=== PATIENT | female | born 1980 | race Caucasian/White ===

== ENCOUNTER 2017-02-11 19:35 | Observation (INO) | payer OTHER ==
[2017-02-11 20:35] LABS: #Basophils 0.1 thou/uL (0.0-0.2); #Eosinphils 0.1 thou/uL (0.0-0.7); #Lymphocytes 2.6 thou/uL (1.20-3.40); #Monocytes 0.5 thou/uL (0.11-0.59); #Neutrophils 3.5 thou/uL (1.40-6.50); %Basophils 1.5 % (0.0-1.0); %Lymphocytes 37.9 % (21.0-51.0); %Monocytes 7.3 % (0.0-10.0); Hematocrit 38.4 % (36.0-47.0); Mean Platelet Volume 7.3 fL (7.4-10.4); Red Blood Cell (RBC) Count 4.15 mill/uL (4.20-5.40); White Blood Cell (WBC) Count 6.8 thou/uL (4.8-10.8)
[2017-02-11 20:48] LABS: Anion Gap 14 mmol/L (10-20); BUN (Urea Nitrogen) 12 mg/dL (7.0-18.7); Calc. Creatinine Clearance 0 mL/min (70-130); Calcium 9.6 mg/dL (7.8-10.44); Carbon Dioxide 22 mmol/L (22-29); Chloride 105 mmol/L (98-107); Estimated GFR-MDRD 85
[2017-02-11 21:41] LABS: Bilirubin Negative (Negative); Blood, Urine Negative (Negative); Glucose, Urine (Dipstick) Negative (Negative); Ketone, Urine Negative (Negative); Nitrite Negative (Negative); Protein, Urine (Dipstick) Negative (Neg-Trace); Urobilinogen 0.2 mg/dL (0.2-1.0)
--- NOTE | 2017-02-11 21:41 | ULT ---
EXAM: PELVIC ULTRASOUND 02/11/17 COMPARISON: 02/15/12 HISTORY: Vaginal bleeding. Abdominal pain and spotting. Two prior ectopic pregnancies. Serum beta HCG is 7854 . TECHNIQUE: Endovaginal imaging of the pelvis is performed. The ovaries are interrogated with dietz scale, color flow, doppler imaging with spectral waveform analysis. FINDINGS: The uterus is identified and measures 7.7 x 3.7 x 4.5 cm. In the mid lower aspect of the uterus ther e is a solid echotexture area measuring 0.7 cm which may represent a small leiomyoma. The visualized endometrium has a homogeneous echotexture and measures 1 cm. There is no sonographic evidence of a gestational sac, yolk sac or pole. The right ovary has a normal echotexture measuring 2.5 x 1.7 x 1.6 cm. Left ovary has a normal echotexture with a probable corpus luteal cyst measuring 1.6 x 1.1 x 1.5 cm. Overall, the left ovary measures 2.4 x 2.0 x 2.5 cm. There is no significant free fluid in the cul-de-sac. OVARIAN DOPPLER: Vascular flow to both ovaries. IMPRESSION: No sonographic evidence of an intrauterine gestation. Differential considerations include early intr auterine versus a sonographic occult ectopic versus mid spontaneous . Fo llowup ultrasound and serial beta HCGs are recommended. POS: [facility]
[2017-02-11] MEDS ORDERED: Promethazine HCl 25 MG/ML VIAL IM PRN (22:27)
[2017-02-11] MEDS ORDERED: Ondansetron HCl/PF 4 MG/2 ML Vial IVP PRN (22:27)
[2017-02-11] MEDS ORDERED: traMADol HCl 50 MG TAB PO PRN (22:30)
[2017-02-11] MEDS ORDERED: Lactated Ringer's 1,000 ML IV SCH ×2 (22:30→23:00)
[2017-02-11 23:03] LABS: Hematocrit 36.3 % (36.0-47.0); Red Blood Cell (RBC) Count 3.95 mill/uL (4.20-5.40)
[2017-02-12 01:31] VITALS: BMI 43.2
[2017-02-12] MEDS ORDERED: Fentanyl 250 MCG/5 ML VIAL ONE (07:13)
--- NOTE | 2017-02-12 07:21 | HP ---
DATE OF ENCOUNTER: 02/11/2017 REFERRING PHYSICIAN: Jose Israel M.D. in the Emergency Room. CHIEF COMPLAINT: Abdominal pain with a positive test. HISTORY OF PRESENT ILLNESS: The patient is a 36-year-old G6, P2 female with an intrauterine pregnan cy approximately 4-5 weeks by LMP, who is presenting to Labor and Delivery with a 4-day history of i ntermittent abdominal pain and vaginal spotting. The patient reports a history of 2 previous ectopi c pregnancies with one salpingectomy and one treated with methotrexate. The patient also has a hist ory of 2 prior C-sections and 6 pregnancies in total with 2 induced abortions. The patient denies a ny nausea, vomiting, chest pain, or shortness of breath. She denies any significant pain at this ti me, but is concerned that her chronic tramadol use may be blunting what she is feeling. The patient has chronic neck pain. PAST MEDICAL HISTORY: Significant for surgical induced hypothyroidism, chronic pain in her neck and back. PAST SURGICAL HISTORY: She has had a left fallopian tube removed. She has had a thyroidectomy. Sh e had a recent neck surgery for torn disk and has had left arm surgery. SOCIAL HISTORY: The patient reports that she smokes about 1 pack per day. She denies any alcohol u se. The patient also reports that she uses marijuana about one time in a week. REVIEW OF SYSTEMS: Per HPI. PHYSICAL EXAMINATION: VITAL SIGNS: Blood pressure 129/73, pulse of 80, respiratory rate of 18, temperature 97.4, satting 100% on room air with the pain scales. The patient is denying pain at the time of evaluation. GENERAL: She appears to be in no acute distress. She is alert and oriented, cooperative and pleasa nt to interact with. HEENT: Head is normocephalic and atraumatic. LUNGS: Clear to auscultation bilaterally. HEART: Regular rate and rhythm. ABDOMEN: Soft and nontender at this time. EXTREMITIES: Nontender, nonedematous. GENITOURINARY: Has been deferred. Her beta-hCG is over 7000. Ultrasound does not show any dilated adnexa or any intrauterine pregnanc y and no free fluid in the cul-de-sac. ASSESSMENT: The patient is a 36-year-old female with a approximately 4-5 weeks gestation that is not visible in the uterine cavity and is having intermittent right lower quadrant pain. At this point with a quant level of 7000, we should be seeing an intrauterine with pole and cardiac activity. The patient has a history of previous ectopics x2 and is highly suspected of having one with this . We discussed the various options including medical versus surgical management and the patient feels strongly about having a surgical evaluation and removal of the rig ht tube given her history and her risk factors for repeat ectopic. The patient last ate a couple of hours before presentation and given the patient's stable status and minimal pain at this time, we va celis opted to admit the patient to the floor for the night and plan to have surgery at 7:00 in the mo rning. I have made the patient n.p.o. and I have explained to her that if at any point she is havin g increasing pain, to notify her nurse. The patient has been counseled to the risks and benefits of diagnostic laparoscopy including the ris k of bleeding, infection, damage to bowel or bladder or blood vessels. We have also explained that this procedure will make her sterile as she will no longer have tubes on either side of the uterus. The patient has expressed understanding and desires to proceed. We have also counseled the patient to a D\T\C in the event if that becomes necessary and including the risks of bleeding, infection, d amage to bowel, bladder and blood vessels. Plan at this time is to begin laparoscopically for remov al of that right tube and if that tube was completely normal, given the high risk of ectopic, we leah l plan on an intraoperative D\T\C for fresh pathology to review and confirm. If there is nothing in the uterus, then we will plan on removing that tube and then we will look elsewhere in the cavity f or possible locations and if need be, we will follow her quant levels to 0.
[2017-02-12] MEDS ORDERED: Bupivacaine/Epinephrine 0.25% 30 ML VIAL ONE (07:52)
[2017-02-12] MEDS ORDERED: Lidocaine 2% w/Epinephrine 1:200K 20 ML VIAL ONE (07:54)
[2017-02-12] MEDS ORDERED: Bupivacaine PF 0.5% 30 ML VIAL ONE (07:55)
[2017-02-12] MEDS ORDERED: Midazolam HCl 2 mg/2 ml Vial ONE (08:32)
[2017-02-12] MEDS ORDERED: Glycopyrrolate 0.2 MG/ML 5 ML SYRINGE ONE (08:43)
[2017-02-12] MEDS ORDERED: Propofol 200 MG/20 ML VIAL ONE (08:43)
[2017-02-12] MEDS ORDERED: Lidocaine 1% PF 5 ML VIAL ONE (08:43)
[2017-02-12] MEDS ORDERED: Ondansetron HCl/PF 4 MG/2 ML Vial ONE (08:43)
[2017-02-12] MEDS ORDERED: Dexamethasone 20 MG/5 ML VIAL ONE (08:43)
--- NOTE | 2017-02-12 08:54 | PRG ---
DATE OF SERVICE: 02/12/2017 PREOPERATIVE EVALUATION TIME OF EVALUATION: 08:25, it is now 08:37 In brief, this is a patient who has been seen at the bedside in the same day hold, [facility], room #2. This patient was admitted by Dr. Nevarez for suspected ectopic with a past history of ectopic previously treated with methotrexate as well as salpingectomy, she believes it was the left side. She arrives now clinically stable, but with some lower pelvic cramping with a noted hCG value that is above the level of detection. A pelvic ultrasound showed no evidence of an intrauterine . I have evaluated the ultrasound myself. I reviewed the case with Dr. Nevarez and have seen and evaluated the patient at bedside. Impression/Plan: Possible Ectopic. We are now on the way to the OR for possible diagnostic laparoscopy/salpingectomy, with possible D\T\C if needed. Patient aware that id an ectopic is found and we remove the only remaining tube, then sterility will result. This patient has a full preop written note by me in the physical chart. For full details, please turn to the written note. TO
[2017-02-12] MEDS ORDERED: Ondansetron HCl/PF 4 MG/2 ML Vial IVP PRN (10:42)
[2017-02-12] MEDS ORDERED: Promethazine HCl 25 MG/ML VIAL SLOW IVP PRN (10:42)
[2017-02-12] MEDS ORDERED: Promethazine HCl 25 MG/ML VIAL IM PRN (10:42)
[2017-02-12] MEDS ORDERED: Fentanyl 100 MCG/2 ML VIAL ONE ×2 (10:44→11:12)
[2017-02-12] MEDS ORDERED: Acetaminophen 1,000 MG in Premix Bag 1 BAG IVPB SCH (10:45)
[2017-02-12] MEDS ORDERED: Promethazine HCl 25 MG/ML VIAL IM/IV PRN (10:47)
--- NOTE | 2017-02-12 10:50 | PDOC.EVN ---
Event Note - Event Note Event Note: Patient stable, now in recovery. RH type positive. To RR, then room 306.
--- NOTE | 2017-02-12 11:12 | CON ---
INTRAOPERATIVE CONSULTATION NOTE DATE OF CONSULTATION: 02/12/2017 CHIEF COMPLAINT: Intestinal adhesion. HISTORY OF PRESENT ILLNESS: The patient is a 36-year-old female who is undergoing a salpingectomy f or an ectopic . During this procedure, the gear shaper set up operator noted large adhesions in the pelvi s that he was concerned about. The patient had no history of bowel issues or distention. No histor y of bowel obstruction. On examination, the patient was already asleep on the table, there were thr ee 5 mm ports in placed to; one on the right, one on the left and one at the umbilicus. The tube adamson d already been removed. There was a minimal amount of serosanguineous fluid. The sigmoid colon was fused to the lower anterior abdominal wall just suprapubic. There was no evidence in inspections t hat this loop of bowel had been injured by trocar placement nor that there had been any issue with c hronic obstruction. The adhesion was very wide based and attached to the bladder as well, but there was no inflammation. There was no potential space for herniation of small bowel. I elected to roya ve it alone due to the fact that it was fairly wide based that there was a risk of injury to the bow el, that there was no other issue noted and the likelihood it would reform within a few days after s urgery, so the gear shaper set up operator then proceeded with the surgery.
--- NOTE | 2017-02-12 12:43 | PDOC.EVN ---
Event Note - Event Note Event Note: 02/18/17 at 1235: AMA notice: RELEASE NOTE: S/P cornual ectopic right salpingectomy Patient seen at bedside by me 15 minutes prior. Patient wishes to sign out AMA. She is a extermination inspector narcotic med user and states she "wants to go home to her meds". We have just given her stadol and I had just ordered toradol for her. I advised her to stay inhouse until 4pm (1600) due to the cornual ectopic site and as I wished to ensure hemostasis. She has elected to leave AMA. We will give a RX for outpatient motrim and Ultram (#15). She will follow up at [facility] with Dr Soliman in one week. Case reviewed with her nurse as well.
[2017-02-12 12:53] VITALS: BP 153/87; TEMP 97.8
[2017-02-12] MEDS ORDERED: Ketorolac Tromethamine 30 MG/ML VIAL IVP SCH (13:15)
--- NOTE | 2017-02-12 17:09 | OP ---
DATE OF SERVICE: 02/12/2017 TIME OF SERVICE: 10:30 a.m. PREOPERATIVE DIAGNOSES: Suspected ectopic in a patient with prior abdominal surgeries and a prior left tubal removal. POSTOPERATIVE DIAGNOSES: 1. Right cornual ectopic. 2. 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 PROCEDURES: 1. Operative laparoscopy. 2. Right complete salpingectomy using a LigaSure device. 3. FloSeal hemostatic agent applied on the incision. 4. Intraoperative bowel evaluation by Dr. Joe Roche. SURGEON: Shilo Claire M.D. MOISTURE METER READER: Ruben Dhaliwal MD INTRAOPERATIVE CRANE RIGGER: Joe Roche M.D. (after the ectopic was removed, Dr. Roche evaluated the patient for possible loop of bowel dissection for an adhesion that took a loop of small bowel to the anterior abdominal wall away from our site of surgery.) ESTIMATED BLOOD LOSS: Less than or equal to 30 mL FLUIDS: About 1200 mL crystalloid. DRAINS: Carey catheter which had approximately 100-200 mL urine. COMPLICATIONS: None. PATHOLOGY: The right tubal segment with the suspected ectopic within. COUNTS: Correct. DISPOSITION: To recovery room and then to room 306 for a few hours of observation prior to discharge this evening. TECHNIQUE: After proper informed consent was explained, she was taken to the OR where she was successfully placed under general endotracheal anesthesia. She was positioned in Alberto stirrups and all pressure points were adequately padded. Deep hyperflexion and external rotation were avoided in the positioning process. After successful induction of anesthesia, the patient's abdomen and vagina were prepped and draped in the usual sterile fashion. Attention was first turned towards the patient's vagina where a Graves bivalve speculum was placed to visualize the cervix. No active bleeding was noted. A single-tooth tenaculum was placed on the anterior lip of the cervix and a Hulka clamp was placed into the uterus for intrauterine manipulation. The surgeon's gloves were removed and attention was turned to the patient's abdomen. A 7 mm skin incision was made in the infraumbilical area with the scalpel. The fascia was identified and a small 5 mm incision was made in the fascia for direct trocar entry. A 5 mm laparoscopic trocar was placed under direct visualization without Veress needle use. This was done due to the patient's 2 prior C- sections. No bowel or other visceral injury was noted. Once we placed the camera in, we did note that the small bowel did have a loop of adhesion to the anterior abdominal wall which was just medial to our trocar site, but the trocar sites did not involve the bowel. We elected to continue the procedure until the ectopic was removed at which time we will call General Surgery to see if they could remove that loop of bowel. We then placed two 5 mm trocars in the right and left lower quadrant in the usual fashion. We identified there was no left tube and the right tube had a suspected cornual ectopic that was approximately 2 x 2 cm in size. We started at the fimbrial end and using the LigaSure instrument, we dissected the tube all the way to the level of the cornu. We then used monopolar scissors to dissect around the implantation of the cornual ectopic at the cornual area. Once it was freed, the LigaSure device was able to find a knuckle of tube to amputate the remainder of the tube off the cornu. For the denuded cornual base, we used monopolar scissors and fulguration to make it hemostatic. At the end of the procedure, we used FloSeal one full syringe to apply to this crater. It is important to note that we did not actually enter the myometrium and this was just serosal dissection as the ectopic abutted the uterine serosa. After we removed the ectopic, Dr. Roche came in for evaluation of the bowel. Based on the complex nature of the adhesion, we felt that removal of that bowel was actually risker than leaving that loop of bowel in place since it was at low risk for strangulation and the patient was asymptomatic. Once again, Dr. Roche did assess the bowel and noted #1 there was no trocar injury and #2 that it did not need to be removed based on its location and thickness. After this was done, then we removed the pathology specimen with an EndoCatch bag. To do this, we converted the right lower quadrant port to a 10 mm incision and a 10 mm EndoCatch was then placed. That right lower quadrant port was then closed with a deep suture of 0 Vicryl. All ports were then free of instrumentation after we confirmed after copious inspection and vigorous inspection of the cornual area and after noting hemostasis, and after irrigation of the cul-de-sac , once we were assured that the area was hemostatic, we closed the ports. All gas was removed and the patient seemed to tolerate procedure well. Once again, prior to removing all instrumentation, we did place one syringe of FloSeal on the cornual area and hemostasis was assured. There was no area of bleeding noted. The patient will go to recovery and then to room 306 on the gynecology floor for a few hours of observation prior to being released. TO
== END 2017-02-12 12:45 | disposition left against medical advice (07) ==
LOC: ERS 19:35 → 3SE 22:00 → 3SW 02-12 11:57
PROVIDERS: ADMIT Obstetrics & Gynecology; ATTEND Obstetrics & Gynecology
PROC: 10T24ZZ Resection of Products of Conception, Ectopic, Percutaneous Endoscopic Approach (ICD-10-PCS; principal; 2017-02-12)
PROC: 0UT54ZZ Resection of Right Fallopian Tube, Percutaneous Endoscopic Approach (ICD-10-PCS; 2017-02-12)
DX: O00.80 Other ectopic pregnancy without intrauterine pregnancy (principal); E03.9 Hypothyroidism, unspecified; F17.210 Nicotine dependence, cigarettes, uncomplicated; Z90.721 Acquired absence of ovaries, unilateral; Z98.890 Other specified postprocedural states
CPT/HCPCS: 36415; 76856; 80048; 81003; 84702; 85025; 86850; 86900; 86901; 88305; 96361; 96374; G0378; J0131; J0595; J1100; J1170; J2001; J2250; J2405; J2704; J3010; S0020

== ENCOUNTER 2017-02-12 22:01 | Emergency (ER) | payer OTHER ==
[2017-02-12] MEDS ORDERED: Fentanyl 100 MCG/2 ML VIAL ONE (22:54)
[2017-02-12] MEDS ORDERED: Ketorolac Tromethamine 60 MG/2 ML VIAL ONE (22:54)
--- NOTE | 2017-02-12 23:03 | PDOC.EVN ---
Event Note - Event Note Event Note: 02/12/17 at 2245: I was contacted by the ER Physician that Ms Morton returned to the ER for pain control. She is afetbrile with stable vitals. This patient left earlier today AMA after laparoscopic salpingectomy for a right cornual ectopic. Per the ER physician, she apperas stable and has stable vitals. OK for outpatient pain management follow up (has chronic narcotic med use and sees pain management clinic). I am in L&D currently and not marv to go to the ER at this time. Per the ED physician, he is comfortable with her going on to outpatient care as she appears in no acute distress. No evidence of postop complication by vitals assessment. Care noted.
--- NOTE | 2017-02-12 23:34 | RAD ---
EXAM: ONE VIEW CHEST 02/12/17 HISTORY: Had right fallopian tube removed this morning. Now having right shoulder and abdominal pain. COMPARISON: None. FINDINGS: Portable upright chest demonstrates a normal cardiac silhouette. The pulmonary vessels are slightly prominent. No masses or consolidation. No pneumothorax or osseous abnormalities. Cervical fusion milana dware is noted and incompletely evaluated. IMPRESSION: Mild pulmonary vascular prominence. POS: [facility]
== END 2017-02-12 23:58 | disposition home or self-care (01) ==
LOC: ERS 22:01
DX: R10.84 Generalized abdominal pain (principal); E03.9 Hypothyroidism, unspecified; F17.210 Nicotine dependence, cigarettes, uncomplicated; Z79.891 Long term (current) use of opiate analgesic; Z79.899 Other long term (current) drug therapy
CPT/HCPCS: 71010; 96372; J1885; J3010

== ENCOUNTER → 2017-03-24 | Outpatient (CLI) | payer OTHER | LOC: BICRAD 16:24 | PROVIDERS: ATTEND Family Medicine | DX: M79.671 Pain in right foot (principal); M79.89 Other specified soft tissue disorders ==

== ENCOUNTER 2017-08-23 06:08 | Emergency (ER) | payer OTHER ==
[2017-08-23 06:48] LABS: #Basophils 0.1 thou/uL (0.0-0.2); #Eosinphils 0.1 thou/uL (0.0-0.7); #Lymphocytes 2.3 thou/uL (1.20-3.40); #Monocytes 0.5 thou/uL (0.11-0.59); #Neutrophils 6.3 thou/uL (1.40-6.50); %Basophils 0.8 % (0.0-1.0); %Eosinophils 1.5 % (0.0-10.0); %Monocytes 5.5 % (0.0-10.0); %Neutrophils 67.2 % (42.0-75.0); Hemoglobin 14.1 g/dL (12.0-16.0); Mean Corpuscular HGB CONC 33.3 g/dL (32.0-36.0); Mean Corpuscular Hemoglobin 29.5 pg (27.0-31.0); Mean Corpuscular Volume 88.6 fl (81.0-99.0); Mean Platelet Volume 6.8 fL (7.4-10.4); Platelet Count 302 thou/uL (130-400); RBC Distribution Width 14.4 % (11.5-14.5); Red Blood Cell (RBC) Count 4.77 mill/uL (4.20-5.40); White Blood Cell (WBC) Count 9.3 thou/uL (4.8-10.8)
[2017-08-23 07:08] LABS: ALT (SGPT) 50 U/L (8-55); AST (SGOT) 37 U/L (5-34); Albumin 4.1 g/dL (3.5-5.0); Alkaline Phosphatase 111 U/L (40-150); Anion Gap 12 mmol/L (10-20); BUN (Urea Nitrogen) 13 mg/dL (7.0-18.7); Bilirubin, Total 0.3 mg/dL (0.2-1.2); Calc. Creatinine Clearance 0 mL/min (70-130); Calcium 9.2 mg/dL (7.8-10.44); Carbon Dioxide 23 mmol/L (22-29); Chloride 108 mmol/L (98-107); Estimated GFR-MDRD 88; Globulin 3.5 g/dL (2.4-3.5); Glucose 104 mg/dL (70-105); Lipase 17 U/L (8-78); Potassium 3.8 mmol/L (3.5-5.1); Protein, Total 7.6 g/dL (6.0-8.3); Sodium 139 mmol/L (136-145)
[2017-08-23] MEDS ORDERED: Ondansetron ODT 4 MG TAB ONE (07:18)
[2017-08-23 07:50] LABS: Bilirubin Negative (Negative); Blood, Urine Negative (Negative); Clarity CLEAR (Clear); Glucose, Urine (Dipstick) Negative (Negative); Leukocyte Negative (Negative); Nitrite Negative (Negative); Protein, Urine (Dipstick) Negative (Neg-Trace); Specific Gravity, Urine 1.027 (1.002-1.036)
[2017-08-23 07:56] LABS: Pregnancy Test - Urine (BHCG) Negative (Negative); Pregu Control Background? CLEAR/WHITE (CLR/WHITE); Pregu Control Bar Appear? YES (CONTROL BAR); Specific Gravity 1.027 (1.002-1.036)
[2017-08-23] MEDS ORDERED: Dicyclomine 20 MG TAB ONE (08:09)
== END 2017-08-23 09:35 | disposition home or self-care (01) ==
LOC: ERS 06:08
DX: R10.9 Unspecified abdominal pain (principal); R11.2 Nausea with vomiting, unspecified; E03.9 Hypothyroidism, unspecified; F17.210 Nicotine dependence, cigarettes, uncomplicated; Z79.899 Other long term (current) drug therapy
CPT/HCPCS: 36415; 80053; 81003; 81025; 83690; 85025; 99284; Q0162

== ENCOUNTER 2017-10-06 12:04 | Outpatient (CLI) | payer OTHER | END 2017-10-06 12:05 | disposition home or self-care (01) | LOC: BICULT 12:04 | PROVIDERS: ATTEND Family Medicine | DX: B19.20 Unspecified viral hepatitis C without hepatic coma (principal); K86.9 Disease of pancreas, unspecified | CPT/HCPCS: 76700 ==

== ENCOUNTER 2017-11-10 14:12 | Emergency (ER) | payer OTHER, SELFPAY ==
--- NOTE | 2017-11-10 15:17 | RAD ---
KUB AND UPRIGHT: HISTORY: Abdominal pain. Constipation. FINDINGS: KUB: The bowel gas pattern is nonobstructive. No free air. No radiopaque calculi or bony findings. PA CHEST: Heart size and mediastinum are within normal limits. Lungs are clear of infiltrates. Pos toperative changes of the cervical spine are seen. IMPRESSION: No acute finding. POS: [facility]
[2017-11-10 15:53] LABS: Bilirubin Negative (Negative); Blood, Urine Negative (Negative); Clarity CLEAR (Clear); Glucose, Urine (Dipstick) Negative (Negative); Leukocyte Negative (Negative); Nitrite Negative (Negative); Protein, Urine (Dipstick) Negative (Neg-Trace); Specific Gravity, Urine 1.005 (1.002-1.036); Urobilinogen 0.2 mg/dL (0.2-1.0); pH, Urine 5.5 (5.0-9.0)
[2017-11-10] MEDS ORDERED: Magnesium Citrate 300 ML BOT ONE (16:07)
== END 2017-11-10 16:23 | disposition home or self-care (01) ==
LOC: ERS 14:12
DX: K59.00 Constipation, unspecified (principal); E03.9 Hypothyroidism, unspecified; F17.210 Nicotine dependence, cigarettes, uncomplicated; Z79.899 Other long term (current) drug therapy
CPT/HCPCS: 74022; 81003; 87086

== ENCOUNTER 2018-03-13 09:05 | Emergency (ER) | payer OTHER ==
[2018-03-13] MEDS ORDERED: Ondansetron PF 4 MG/2 ML Vial ONE ×2 (09:46→10:21)
[2018-03-13] MEDS ORDERED: Morphine 2 MG/ML SYRINGE ONE (09:46)
[2018-03-13 09:47] LABS: #Basophils 0.1 thou/uL (0.0-0.2); #Monocytes 0.3 thou/uL (0.11-0.59); %Basophils 1.4 % (0.0-1.0); %Eosinophils 0.8 % (0.0-10.0); %Lymphocytes 30.6 % (21.0-51.0); %Monocytes 4.9 % (0.0-10.0); %Neutrophils 62.4 % (42.0-75.0); Hemoglobin 14.7 g/dL (12.0-16.0); Mean Corpuscular Hemoglobin 28.8 pg (27.0-31.0); Mean Platelet Volume 7.5 fL (7.4-10.4); Platelet Count 338 thou/uL (130-400); RBC Distribution Width 13.5 % (11.5-14.5); Red Blood Cell (RBC) Count 5.09 mill/uL (4.20-5.40); White Blood Cell (WBC) Count 6.4 thou/uL (4.8-10.8)
[2018-03-13 10:09] LABS: ALT (SGPT) 47 U/L (8-55); AST (SGOT) 44 U/L (5-34); Albumin 4.1 g/dL (3.5-5.0); Alkaline Phosphatase 119 U/L (40-150); Anion Gap 14 mmol/L (10-20); BUN (Urea Nitrogen) 7 mg/dL (7.0-18.7); Bilirubin, Total 0.6 mg/dL (0.2-1.2); Calc. Creatinine Clearance 0 mL/min (70-130); Calcium 9.4 mg/dL (7.8-10.44); Carbon Dioxide 21 mmol/L (22-29); Chloride 107 mmol/L (98-107); Estimated GFR-MDRD Greater than 90; Glucose 105 mg/dL (70-105); Lipase 14 U/L (8-78); Potassium 4.2 mmol/L (3.5-5.1); Protein, Total 8.1 g/dL (6.0-8.3); Sodium 138 mmol/L (136-145)
[2018-03-13 10:21] LABS: Bilirubin Negative (Negative); Blood, Urine Negative (Negative); Clarity CLEAR (Clear); Glucose, Urine (Dipstick) Negative (Negative); Leukocyte Negative (Negative); Nitrite Negative (Negative); Protein, Urine (Dipstick) Negative (Neg-Trace); Specific Gravity, Urine 1.024 (1.002-1.036)
== END 2018-03-13 10:55 | disposition home or self-care (01) ==
LOC: ERS 09:05
DX: R10.9 Unspecified abdominal pain (principal); E86.0 Dehydration; R11.2 Nausea with vomiting, unspecified; E03.9 Hypothyroidism, unspecified; F17.210 Nicotine dependence, cigarettes, uncomplicated; Z79.899 Other long term (current) drug therapy
CPT/HCPCS: 80053; 81003; 83605; 83690; 85025; 96361; 96374; 96375; 96376; J2270; J2405

== ENCOUNTER 2018-07-29 11:18 | Emergency (ER) | payer OTHER ==
[2018-07-29] MEDS ORDERED: Bicillin LA 1.2 MILLION UNITS/2 ML SYRINGE ONE (12:29)
== END 2018-07-29 12:50 | disposition home or self-care (01) ==
LOC: ERS 11:18
DX: J02.0 Streptococcal pharyngitis (principal); E03.9 Hypothyroidism, unspecified; I10 Essential (primary) hypertension; F17.210 Nicotine dependence, cigarettes, uncomplicated; Z79.899 Other long term (current) drug therapy
CPT/HCPCS: 87430; 96372; J0561

== ENCOUNTER 2018-08-14 13:22 | Outpatient (CLI) | payer OTHER ==
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
== END 2018-08-14 13:23 | disposition home or self-care (01) ==
LOC: BICRAD 13:22
PROVIDERS: ATTEND Family Medicine
DX: M06.9 Rheumatoid arthritis, unspecified (principal); M77.52 Other enthesopathy of left foot and ankle; M79.89 Other specified soft tissue disorders

== ENCOUNTER 2018-08-28 01:37 | Emergency (ER) | payer OTHER ==
[2018-08-28] MEDS ORDERED: Ondansetron ODT 4 MG TAB ONE (01:50)
[2018-08-28 02:20] LABS: Bilirubin Negative (Negative); Blood, Urine Negative (Negative); Clarity CLOUDY (Clear); Glucose, Urine (Dipstick) Negative (Negative); Leukocyte Trace (Negative); Nitrite Negative (Negative); Protein, Urine (Dipstick) Negative (Neg-Trace); Specific Gravity, Urine 1.013 (1.002-1.036); Urobilinogen 0.2 mg/dL (0.2-1.0); pH, Urine 7.5 (5.0-9.0)
[2018-08-28 02:22] LABS: Bacteria/HPF 1+ HPF (None Seen); Hyaline Casts/LPF 4-6 HYALINE CAST LPF (0-3 Hyaline); Pathc Cast-AUWi Flag 1.49 (0-2.49); RBC/HPF 0-3 HPF (0-3); WBC/HPF 0-3 HPF (0-3)
[2018-08-28 02:26] LABS: Pregnancy Test - Urine (BHCG) Negative (Negative); Pregu Control Background? CLEAR/WHITE (CLR/WHITE); Pregu Control Bar Appear? YES (CONTROL BAR); Specific Gravity 1.013 (1.002-1.036)
[2018-08-28] MEDS ORDERED: Ondansetron PF 4 MG/2 ML Vial ONE (02:31)
[2018-08-28] MEDS ORDERED: Promethazine HCl 25 MG/ML VIAL ONE (02:31)
[2018-08-28 02:36] LABS: Band 3 % (5-11); Eosinophils 3 % (0-10); Hemoglobin 15.1 g/dL (12.0-16.0); Lymphocytes 52 % (21-51); MDiff Complete? YES; Mean Corpuscular HGB CONC 34.5 g/dL (32.0-36.0); Mean Corpuscular Hemoglobin 30.8 pg (27.0-31.0); Mean Corpuscular Volume 89.3 fL (78.0-98.0); Mean Platelet Volume 7.2 fL (7.4-10.4); Monocytes 9 % (0-10); Neutrophil 33 % (42-75); Platelet Count 346 thou/uL (130-400); RBC Distribution Width 12.8 % (11.5-14.5); Red Blood Cell (RBC) Count 4.89 mill/uL (4.20-5.40)
[2018-08-28 02:37] LABS: ALT (SGPT) 40 U/L (8-55); AST (SGOT) 29 U/L (5-34); Albumin 4.3 g/dL (3.5-5.0); Alkaline Phosphatase 128 U/L (40-150); Anion Gap 15 mmol/L (10-20); BUN (Urea Nitrogen) 15 mg/dL (7.0-18.7); Bilirubin, Total 0.4 mg/dL (0.2-1.2); Calc. Creatinine Clearance 0 mL/min (70-130); Calcium 10.3 mg/dL (7.8-10.44); Carbon Dioxide 24 mmol/L (22-29); Chloride 107 mmol/L (98-107); Estimated GFR-MDRD 72; Globulin 4.2 g/dL (2.4-3.5); Glucose 89 mg/dL (70-105); Potassium 3.9 mmol/L (3.5-5.1); Protein, Total 8.5 g/dL (6.0-8.3); Sodium 142 mmol/L (136-145)
[2018-08-28 02:39] LABS: BHCG - Serum Negative (NEGATIVE); Pregs Control Background? CLEAR/WHITE (CLR/WHITE); Pregs Control Bar Appear? YES (CONTROL BAR)
== END 2018-08-28 04:09 | disposition home or self-care (01) ==
LOC: ERS 01:37
DX: R11.2 Nausea with vomiting, unspecified (principal); E03.9 Hypothyroidism, unspecified; I10 Essential (primary) hypertension; F17.210 Nicotine dependence, cigarettes, uncomplicated; Z79.899 Other long term (current) drug therapy
CPT/HCPCS: 80053; 81003; 81015; 81025; 83690; 84703; 85025; 96365; 96366; 96375; J2405; J2550; Q0162

== ENCOUNTER 2021-02-16 08:20 | Outpatient (CLI) | payer OTHER | END 2021-02-16 08:21 | disposition home or self-care (01) | LOC: ULT 08:20 | PROVIDERS: ATTEND Family Medicine | DX: B18.2 Chronic viral hepatitis C (principal) | CPT/HCPCS: 76705 ==

== ENCOUNTER 2021-08-17 08:23 | Outpatient (CLI) | payer OTHER | END 2021-08-17 08:24 | disposition home or self-care (01) | LOC: BICULT 08:23 | PROVIDERS: ATTEND Family Medicine | DX: B18.2 Chronic viral hepatitis C (principal); R94.5 Abnormal results of liver function studies; N93.8 Other specified abnormal uterine and vaginal bleeding | CPT/HCPCS: 76705; 76856 ==

== ENCOUNTER 2021-10-22 10:59 | Emergency (ER) | payer OTHER | END 2021-10-22 12:18 | disposition home or self-care (01) | LOC: ERS 10:59 | DX: S61.200A Unspecified open wound of right index finger without damage to nail, initial encounter (principal); I10 Essential (primary) hypertension; E03.9 Hypothyroidism, unspecified; M06.9 Rheumatoid arthritis, unspecified; B19.20 Unspecified viral hepatitis C without hepatic coma; F17.210 Nicotine dependence, cigarettes, uncomplicated; W25.XXXA Contact with sharp glass, initial encounter | CPT/HCPCS: 12002 ==

== ENCOUNTER 2023-02-01 10:31 | Outpatient (CLI) | payer OTHER | END 2023-02-01 10:32 | disposition home or self-care (01) | LOC: BICRAD 10:31 | PROVIDERS: ATTEND Internal Medicine Hospice and Palliative Medicine | DX: M46.1 Sacroiliitis, not elsewhere classified (principal); M47.816 Spondylosis without myelopathy or radiculopathy, lumbar region | CPT/HCPCS: 72100; 72202 ==

== ENCOUNTER 2023-06-02 15:49 | Outpatient (CLI) | payer OTHER | END 2023-06-02 15:50 | disposition home or self-care (01) | LOC: BICRAD 15:49 | PROVIDERS: ATTEND Family Medicine | DX: M79.671 Pain in right foot (principal) ==

== ENCOUNTER 2025-01-08 10:42 | Outpatient (CLI) | payer OTHER, BC | END 2025-01-08 10:43 | disposition home or self-care (01) | LOC: BICRAD 10:42 | PROVIDERS: ATTEND Internal Medicine Rheumatology | DX: M25.562 Pain in left knee (principal); M17.12 Unilateral primary osteoarthritis, left knee ==